=== PATIENT | male | born 1995 | race Caucasian/White ===

== ENCOUNTER 2017-01-04 14:27 | Emergency (ER) | payer OTHER ==
[2017-01-04 14:46] LABS: EOSINOPHIL (%) 0 % (0-5); HEMATOCRIT 39.8 % (38.0-50.0); IMMATURE GRANULOCYTE (%) 0.6 % (0.0-0.7); INSTRUMENT ABS NEUTROPHIL CT 4.9 K/uL; MCH 29.8 PG (29.0-34.0); MCHC 33.9 G/DL (30.0-36.0); MCV 87.9 FL (86-99); MEAN PLAT.VOLUME 9.1 uM^3 (9.0-12.4); MONOCYTE (%) 9.8 % (3-12); MONOCYTE COUNT 0.7 K/uL (0-0.8); NEUTROPHIL (%) 73.7 % (45-76); NEUTROPHIL COUNT 4.9 K/uL (1.8-6.4); PLATELET COUNT 275 K/uL (156-360); RBC DIS.WIDTH-CV 12.4 % (11.8-14.6); RBC DIS.WIDTH-SD 40.4 % (39-53); RED BLOOD COUNT 4.53 M/uL (4.00-5.50); WHITE BLOOD COUNT 6.6 K/uL (4.1-10.2)
[2017-01-04 14:55] LABS: AMYLASE 33 IU/L (1-118); CHLORIDE 103 mEq/L (99-109); POTASSIUM 4.2 mEq/L (3.7-5.4); SODIUM 139 mEq/L (136-147)
[2017-01-04 14:56] LABS: GLUCOSE 105 mg/dL (70-99)
[2017-01-04 14:58] LABS: ANION GAP 10 MEQ/L (2-14)
[2017-01-04 14:59] LABS: SERUM ETHYL ALCOHOL < 10 mg/dL
[2017-01-04 15:01] LABS: GFR ESTIMATE (CALCULATED) > 59 mL/min/; UREA NITROGEN (BUN) 11 mg/dL (9-23)
[2017-01-04 15:03] LABS: LIPASE 9 U/L (1.0-51.0)
[2017-01-04 16:49] VITALS: BP 126/79
[2017-01-04 17:58] LABS: ADD MIUA? NO; BILIRUBIN NEGATIVE; BLOOD NEGATIVE; COLOR YELLOW ((YELLOW)); GLUCOSE (STRIP) NEGATIVE; KETONES 5; LEUKOCYTES NEGATIVE; NITRITE NEGATIVE; PROTEIN (STRIP) 30; UCUL ADDED? NO; UROBILINOGEN 0.2 MG/DL (0.2-1.0)
[2017-01-04 18:07] LABS: AMPHETAMINE NEGATIVE (500 ng/mL); BARBITURATES NEGATIVE (200 ng/mL); BENZODIAZEPINES NEGATIVE (150 ng/mL); COCAINE NEGATIVE (150 ng/mL); INTERNAL CONTROLS VALID? YES; METHADONE NEGATIVE (200 ng/mL); METHAMPHETAMINE NEGATIVE (500 ng/mL); OPIATES (MORPHINE) PRESUMPTIVE POSITIVE (100 ng/mL); OXYCODONE NEGATIVE (100 ng/mL); PHENCYCLIDINE NEGATIVE (25 ng/mL); PROPOXYPHENE NEGATIVE (300 ng/mL); THC CANNABINOIDS PRESUMPTIVE POSITIVE (50 ng/mL); TRICYCLIC ANTIDEPRESSANTS NEGATIVE (300 ng/mL)
[2017-01-04 18:08] LABS: ADD MEDTOX COMMENT Y
[2017-01-04 18:12] LABS: SPECIFIC GRAVITY 1.065 (1.000-1.030)
[2017-01-04 18:38] LABS: OPIATES QUANTITATIVE VALUE 0 NG/ML
== END 2017-01-04 17:56 | disposition short-term general hospital (02) ==
LOC: TRA 14:27
PROVIDERS: Emergency Medicine
DX: S02.40CB Maxillary fracture, right side, initial encounter for open fracture (principal); S03.2XXA Dislocation of tooth, initial encounter; S01.511A Laceration without foreign body of lip, initial encounter; F11.10 Opioid abuse, uncomplicated; J45.909 Unspecified asthma, uncomplicated; V49.88XA Car occupant (driver) (passenger) injured in other specified transport accidents, initial encounter
CPT/HCPCS: 70450; 70486; 71260; 72125; 72129; 72132; 73120; 73130; 73560; 74177; 80048; 81003; 82150; 83690; 84999; 85025; 86900; 86901; 99281; 99285; G0480; J0295; J2405; J3010; J7050